=== PATIENT | female | born 1960 | race Caucasian/White ===

== ENCOUNTER → 2017-04-20 | Outpatient (CLI) | payer OTHER ==
--- NOTE | 2017-04-20 09:28 | WOMENS IMAGING REPORT ---
EXAM DESCRIPTION: BILAT SCREENING MAMMO W/CAD COMPLETED DATE/TIME: 04/20/2017 9:07 am REASON FOR STUDY: SCREENING MAMMO Z12.31 ENCNTR SCREEN MAMMOGRAM FOR MALIGNANT NEOPLASM OF YEN COMPARISON: 2015 TECHNIQUE: Standard craniocaudal and mediolateral oblique views of each breast recorded using digita l acquisition. LIMITATIONS: None. FINDINGS: No masses, calcifications or architectural distortion. No areas of suspicion. Read with the assistance of CAD. .[facility] - R2 Cenova Version 1.3 .[facility] - R2 Cenova Version 1.3 .[facility] - R2 Cenova Version 2.4 .[facility] - R2 Cenova Version 2.4 .[facility] - R2 [employer] Version 9.2 IMPRESSION: NORMAL MAMMOGRAM. BIRADS 1. BREAST DENSITY: b. There are scattered areas of fibroglandular density. BIRAD: 1 NEGATIVE RECOMMENDATION: ROUTINE SCREENING COMMENT: The patient has been notified of the results by letter per SA requirements. Additional no tification policies are in place for contacting patient with suspicious or incomplete findings. Quality ID #225: The [employer] recommends an annual screening mammogram for women aged 40 years or over. This facility utilizes a reminder system to ensure that all patients receive reminder letters, and/or direct phone calls for appointments. This includes reminders for routine scr eening mammograms, diagnostic mammograms, or other Breast Imaging Interventions when appropriate. Th is patient will be placed in the appropriate reminder system. The [employer] [place] [employer] (ACR) has developed recommendations for screening MRI of the breast s in certain patient populations, to be used in conjunction with mammography. Breast MRI surveillanc e may be appropriate for women with more than 20% lifetime risk of developing breast cancer as deter mined by genetic testing, significant family history of the disease, or history of mantle radiation f or Hodgkins Disease. ACR Practice Guidelines 2008. TECHNICAL DOCUMENTATION: FINDING NUMBER: (1) ASSESSMENT: (1) JOB ID: [id number] [employer]- All Rights Reserved
== END ==
LOC: WI 08:42
PROVIDERS: ATTEND Family Medicine
DX: Z12.31 Encounter for screening mammogram for malignant neoplasm of breast (principal)
CPT/HCPCS: 77067

== ENCOUNTER → 2017-08-02 | Outpatient (CLI) | payer OTHER ==
--- NOTE | 2017-08-02 11:20 | RADIOLOGY REPORT (SQ) ---
EXAM DESCRIPTION: CTA CHEST COMPLETED DATE/TIME: 08/02/2017 9:43 am REASON FOR STUDY: CHEST PAIN (R07.9) R07.9 CHEST PAIN, UNSPECIFIED I82.4Z2 AC EMBLSM AND THOMBERONICA U NSP DEEP VEINS OF LEFT DIST L COMPARISON: None. TECHNIQUE: CT scan of the chest performed using helical scanning technique with dynamic intravenous contrast injection. Images reviewed with lung, soft tissue and bone windows. Reconstructed coronal and sagittal MPR images reviewed. Additional 3 dimensional post-processing performed to develop Maximal Intensity Projection images (MD P). All images stored on PACS. All CT scanners at this facility use dose modulation, iterative reconstruction, and/or weight based d osing when appropriate to reduce radiation dose to as low as reasonably achievable (ALARA). [facility]: Dose Right [facility]: CareDose [facility]: Dose Right [facility]: Teradose 4D [facility]: [employer] Edutainment CONTRAST TYPE AND DOSE: contrast/concentration: Isovue 370.00 mg/ml; Total Contrast Delivered: 76.0 ml; Total Saline Delivered: 110.0 ml Contrast bolus optimized for the pulmonary arteries. Not diagnostic for the aorta. RENAL FUNCTION: Creatinine 0.9 RADIATION DOSE: CT Rad equipment meets quality standard of care and radiation dose reduction techniq ues were employed. CTDIvol: 11.3 - 15.5 mGy. DLP: 571 mGy-cm. . LIMITATIONS: None. FINDINGS: LUNGS AND PLEURA: No masses, infiltrates, pneumothorax. No pleural effusions, calcificati ons. AORTA AND GREAT VESSELS: No aneurysm. Contrast bolus not optimized for the aorta. HEART: No pericardial effusion. No significant coronary artery calcifications. PULMONARY ARTERIES: No emboli visualized in the main pulmonary arteries or the segmental branches. HILAR AND MEDIASTINAL STRUCTURES: No identified masses or abnormal nodes. HARDWARE: None in the chest. UPPER ABDOMEN: There is diffuse fatty infiltration of the liver. A couple small splenic artery aneur ysms are identified THYROID AND OTHER SOFT TISSUES: No masses. No adenopathy. BONES: No acute or significant finding. 3D MIPS: Confirm above findings. OTHER: No other significant finding. IMPRESSION: No evidence for pulmonary embolic disease. No acute consolidations or pleural effusions are identified. Other findings as noted above COMMENT: Quality ID # [id number]: Final reports with documentation of one or more dose reduction techniques (e.g., Automated exposure control, adjustment of the mA and/or kV according to patient size, use of iterative reconstruction technique) TECHNICAL DOCUMENTATION: JOB ID: [id number] [employer]- All Rights Reserved Reading location - IP/workstation name: [email or web address]
== END ==
LOC: RAD 08:43
PROVIDERS: ATTEND Internal Medicine Cardiovascular Disease
DX: I82.4Z2 Acute embolism and thrombosis of unspecified deep veins of left distal lower extremity (principal); R07.9 Chest pain, unspecified
CPT/HCPCS: 71275; 82565

== ENCOUNTER → 2017-09-28 | Outpatient (CLI) | payer OTHER ==
--- NOTE | 2017-09-28 09:26 | WOMENS IMAGING REPORT ---
EXAM DESCRIPTION: U/S ABDOMEN LIMITED COMPLETED DATE/TIME: 09/28/2017 8:14 am REASON FOR STUDY: CHEST PAIN R07.9 CHEST PAIN, UNSPECIFIED COMPARISON: CT angio chest 08/02/2017 TECHNIQUE: Dynamic and static grayscale images acquired of the right upper quadrant and recorded on PACS. Additional selected color Doppler and spectral images recorded. LIMITATIONS: Study limited due to acoustical interference from large body habitus, and from air in t he bowel. FINDINGS: PANCREAS: Not visualized LIVER: Liver are demonstrated profound change fatty infiltration, with diffuse increased echogenicity , difficult to penetrate with the ultrasound energy LIVER VASCULATURE: Normal directional flow of the main portal vein and hepatic veins. GALLBLADDER: Multiple stones are present. No gallbladder wall thickening or pericholecystic fluid. ULTRASOUND-DETECTED ELLISON'S SIGN: Negative. INTRAHEPATIC DUCTS AND COMMON DUCT: Not well seen INFERIOR VENA CAVA: Not well seen AORTA: Not visualized RIGHT KIDNEY: Normal size. Normal echogenicity. No solid or suspicious masses. No hydronephrosis. No calcifications. PERITONEAL CAVITY AND RIGHT PLEURAL SPACE: No ascites or effusions. OTHER: No other significant finding. IMPRESSION: Profound fatty infiltration of the liver Stones in the gallbladder without gallbladder wall thickening or pericholecystic fluid. TECHNICAL DOCUMENTATION: JOB ID: [id number] [employer] All Rights Reserved Reading location - IP/workstation name: [email or web address]
== END ==
LOC: WI 07:04
PROVIDERS: ATTEND Internal Medicine Cardiovascular Disease
DX: R07.9 Chest pain, unspecified (principal); K76.0 Fatty (change of) liver, not elsewhere classified
CPT/HCPCS: 76705

== ENCOUNTER → 2017-12-13 | Outpatient (CLI) | payer OTHER ==
[2017-12-13 09:58] LABS: HEMATOCRIT 39.6 % (36.0-47.0); HEMOGLOBIN 13.8 g/dL (12.0-15.5); MEAN CORPUSCULAR HEMOGLOBIN 32.6 pg (27.0-33.4); MEAN CORPUSCULAR HGB CONC 34.7 g/dL (32.0-36.0); MEAN CORPUSCULAR VOLUME 94 fl (80-97); PLATELET COUNT 213 10^3/uL (150-450); RED BLOOD COUNT 4.22 10^6/uL (3.72-5.28); RED CELL DISTRIBUTION WIDTH 13.2 % (11.5-14.0); WHITE BLOOD COUNT 8.6 10^3/uL (4.0-10.5)
[2017-12-13 10:31] LABS: ALANINE AMINOTRANSFERASE 41 U/L (9-52); ALBUMIN 4.2 g/dL (3.5-5.0); ALKALINE PHOSPHATASE 51 U/L (38-126); ANION GAP 9 (5-19); ASPARTATE AMINO TRANSFERASE 26 U/L (14-36); BILIRUBIN,DIRECT 0.2 mg/dL (0.0-0.4); BILIRUBIN,TOTAL 0.5 mg/dL (0.2-1.3); BLOOD UREA NITROGEN 17 mg/dL (7-20); CALCIUM 9.9 mg/dL (8.4-10.2); CARBON DIOXIDE 26 mmol/L (22-30); CHLORIDE 108 mmol/L (98-107); CHOLESTEROL 206.54 mg/dL (0-200); GLUCOSE 115 mg/dL (75-110); SODIUM 142.5 mmol/L (137-145); TOTAL PROTEIN 6.8 g/dL (6.3-8.2); TRIGLYCERIDES 222 mg/dL (<150)
[2017-12-13 10:41] LABS: DIRECT LDL 126 mg/dL (<100)
[2017-12-13 10:43] LABS: VLDL CHOLESTEROL 44.4 mg/dL (10-31)
== END ==
LOC: OD 09:04
PROVIDERS: ATTEND Internal Medicine Cardiovascular Disease
DX: I10 Essential (primary) hypertension (principal); E78.2 Mixed hyperlipidemia; R07.9 Chest pain, unspecified; E66.01 Morbid (severe) obesity due to excess calories; Z79.899 Other long term (current) drug therapy
CPT/HCPCS: 36415; 80048; 80061; 80076; 84443; 85027

== ENCOUNTER → 2018-08-21 | Outpatient (CLI) | payer OTHER ==
[2018-08-21 08:12] LABS: ALANINE AMINOTRANSFERASE 38 U/L (9-52); ALBUMIN 4.1 g/dL (3.5-5.0); ALKALINE PHOSPHATASE 53 U/L (38-126); ANION GAP 10 (5-19); ASPARTATE AMINO TRANSFERASE 21 U/L (14-36); BILIRUBIN,DIRECT 0.2 mg/dL (0.0-0.4); BILIRUBIN,TOTAL 0.4 mg/dL (0.2-1.3); BLOOD UREA NITROGEN 17 mg/dL (7-20); CALCIUM 9.2 mg/dL (8.4-10.2); CARBON DIOXIDE 25 mmol/L (22-30); CHLORIDE 110 mmol/L (98-107); CHOLESTEROL 195.88 mg/dL (0-200); GLUCOSE 122 mg/dL (75-110); POTASSIUM 4.4 mmol/L (3.6-5.0); SODIUM 144.6 mmol/L (137-145); TOTAL PROTEIN 6.4 g/dL (6.3-8.2); TRIGLYCERIDES 238 mg/dL (<150)
[2018-08-21 08:23] LABS: DIRECT LDL 119 mg/dL (<100)
[2018-08-21 08:27] LABS: VLDL CHOLESTEROL 47.6 mg/dL (10-31)
== END ==
LOC: LAB 07:21
PROVIDERS: ATTEND Internal Medicine Cardiovascular Disease
DX: E78.2 Mixed hyperlipidemia (principal); I10 Essential (primary) hypertension; R00.0 Tachycardia, unspecified; Z79.899 Other long term (current) drug therapy
CPT/HCPCS: 36415; 80048; 80061; 80076; 83525

== ENCOUNTER → 2018-09-22 | Outpatient (CLI) | payer OTHER ==
[2018-09-22 07:58] LABS: ALANINE AMINOTRANSFERASE 32 U/L (9-52); ALBUMIN 4.3 g/dL (3.5-5.0); ALKALINE PHOSPHATASE 51 U/L (38-126); ANION GAP 7 (5-19); ASPARTATE AMINO TRANSFERASE 25 U/L (14-36); BILIRUBIN,DIRECT 0.2 mg/dL (0.0-0.4); BILIRUBIN,TOTAL 0.6 mg/dL (0.2-1.3); BLOOD UREA NITROGEN 21 mg/dL (7-20); CARBON DIOXIDE 24 mmol/L (22-30); CHLORIDE 111 mmol/L (98-107); GLUCOSE 112 mg/dL (75-110); POTASSIUM 4.8 mmol/L (3.6-5.0); SODIUM 142.1 mmol/L (137-145); TOTAL PROTEIN 6.7 g/dL (6.3-8.2)
== END ==
LOC: LAB 07:22
PROVIDERS: ATTEND Internal Medicine Cardiovascular Disease
DX: E88.81 Metabolic syndrome and other insulin resistance (principal); E66.01 Morbid (severe) obesity due to excess calories; R94.5 Abnormal results of liver function studies
CPT/HCPCS: 36415; 80048; 80076; 83036; 83525

== ENCOUNTER → 2018-12-22 | Outpatient (CLI) | payer OTHER ==
[2018-12-22 08:28] LABS: ALBUMIN 4.6 g/dL (3.5-5.0); ALKALINE PHOSPHATASE 53 U/L (38-126); ANION GAP 11 (5-19); ASPARTATE AMINO TRANSFERASE 22 U/L (14-36); BILIRUBIN,DIRECT 0.2 mg/dL (0.0-0.4); BILIRUBIN,TOTAL 0.6 mg/dL (0.2-1.3); BLOOD UREA NITROGEN 18 mg/dL (7-20); CARBON DIOXIDE 26 mmol/L (22-30); CHLORIDE 106 mmol/L (98-107); GLUCOSE 109 mg/dL (75-110); POTASSIUM 4.3 mmol/L (3.6-5.0); TOTAL PROTEIN 7.3 g/dL (6.3-8.2)
== END ==
LOC: LAB 07:23
PROVIDERS: ATTEND Internal Medicine Cardiovascular Disease
DX: I10 Essential (primary) hypertension (principal); E88.81 Metabolic syndrome and other insulin resistance; R94.5 Abnormal results of liver function studies; Z79.899 Other long term (current) drug therapy
CPT/HCPCS: 36415; 80048; 80076; 83525

== ENCOUNTER → 2019-03-28 | Outpatient (CLI) | payer OTHER ==
[2019-03-28 08:11] LABS: CHOLESTEROL 226.06 mg/dL (0-200); TRIGLYCERIDES 275 mg/dL (<150)
[2019-03-28 08:22] LABS: DIRECT LDL 142 mg/dL (<100)
[2019-03-30 13:00] LABS: ALBUMIN 4.3 g/dL (3.5-5.0); ALKALINE PHOSPHATASE 46 U/L (38-126); ANION GAP 8 (5-19); ASPARTATE AMINO TRANSFERASE 25 U/L (14-36); BILIRUBIN,DIRECT 0.1 mg/dL (0.0-0.4); BILIRUBIN,TOTAL 0.4 mg/dL (0.2-1.3); BLOOD UREA NITROGEN 25 mg/dL (7-20); CALCIUM 11.1 mg/dL (8.4-10.2); CARBON DIOXIDE 27 mmol/L (22-30); CHLORIDE 104 mmol/L (98-107); GLUCOSE 107 mg/dL (75-110); POTASSIUM 4.8 mmol/L (3.6-5.0); TOTAL PROTEIN 6.8 g/dL (6.3-8.2)
== END ==
LOC: LAB 07:20
PROVIDERS: ATTEND Internal Medicine Cardiovascular Disease
DX: I10 Essential (primary) hypertension (principal); R94.5 Abnormal results of liver function studies; R00.0 Tachycardia, unspecified; Z79.899 Other long term (current) drug therapy; E78.2 Mixed hyperlipidemia; E88.81 Metabolic syndrome and other insulin resistance
CPT/HCPCS: 36415; 80048; 80061; 80076; 83525; 84443

== ENCOUNTER → 2019-05-08 | Outpatient (CLI) | payer OTHER ==
[2019-05-08 07:47] LABS: ANION GAP 11 (5-19); BLOOD UREA NITROGEN 21 mg/dL (7-20); CARBON DIOXIDE 21 mmol/L (22-30); CHLORIDE 107 mmol/L (98-107); CHOLESTEROL 238.66 mg/dL (0-200); GLUCOSE 114 mg/dL (75-110); TRIGLYCERIDES 253 mg/dL (<150)
[2019-05-08 07:58] LABS: DIRECT LDL 142 mg/dL (<100)
[2019-05-08 08:08] LABS: POTASSIUM 4.5 mmol/L (3.6-5.0); VLDL CHOLESTEROL 50.6 mg/dL (10-31)
== END ==
LOC: LAB 07:11
PROVIDERS: ATTEND Internal Medicine Cardiovascular Disease
DX: E78.2 Mixed hyperlipidemia (principal); I10 Essential (primary) hypertension; E83.52 Hypercalcemia
CPT/HCPCS: 36415; 80048; 80061

== ENCOUNTER → 2019-06-26 | Outpatient (CLI) | payer OTHER ==
[2019-06-26 08:50] LABS: ALBUMIN 4.5 g/dL (3.5-5.0); ALKALINE PHOSPHATASE 50 U/L (38-126); ASPARTATE AMINO TRANSFERASE 26 U/L (14-36); BILIRUBIN,TOTAL 0.8 mg/dL (0.2-1.3); CHOLESTEROL 128.55 mg/dL (0-200); TOTAL PROTEIN 6.6 g/dL (6.3-8.2); TRIGLYCERIDES 171 mg/dL (<150)
[2019-06-26 09:01] LABS: DIRECT LDL 64 mg/dL (<100)
[2019-06-26 09:08] LABS: VLDL CHOLESTEROL 34.2 mg/dL (10-31)
[2019-06-26 13:51] LABS: ANION GAP 9 (5-19); BLOOD UREA NITROGEN 18 mg/dL (7-20); CALCIUM 9.8 mg/dL (8.4-10.2); CARBON DIOXIDE 25 mmol/L (22-30); CHLORIDE 107 mmol/L (98-107); GLUCOSE 115 mg/dL (75-110); POTASSIUM 5.1 mmol/L (3.6-5.0)
== END ==
LOC: OD 07:40
PROVIDERS: ATTEND Internal Medicine Cardiovascular Disease
DX: I10 Essential (primary) hypertension (principal); E78.2 Mixed hyperlipidemia; R73.03 Prediabetes; Z79.899 Other long term (current) drug therapy; R94.5 Abnormal results of liver function studies
CPT/HCPCS: 36415; 80048; 80061; 80076; 83036; 83525

== ENCOUNTER → 2019-09-18 | Outpatient (CLI) | payer OTHER ==
[2019-09-18 08:36] LABS: ANION GAP 6 (5-19); BLOOD UREA NITROGEN 21 mg/dL (7-20); CALCIUM 10.1 mg/dL (8.4-10.2); CARBON DIOXIDE 27 mmol/L (22-30); CHLORIDE 106 mmol/L (98-107); CHOLESTEROL 142.01 mg/dL (0-200); GLUCOSE 111 mg/dL (75-110); POTASSIUM 4.2 mmol/L (3.6-5.0); TRIGLYCERIDES 160 mg/dL (<150)
[2019-09-18 08:47] LABS: DIRECT LDL 69 mg/dL (<100)
== END ==
LOC: OD 07:13
PROVIDERS: ATTEND Internal Medicine Cardiovascular Disease
DX: E87.5 Hyperkalemia (principal); I10 Essential (primary) hypertension; E88.81 Metabolic syndrome and other insulin resistance; E78.2 Mixed hyperlipidemia; Z79.899 Other long term (current) drug therapy
CPT/HCPCS: 36415; 80048; 80061; 83036; 83525

== ENCOUNTER → 2019-12-18 | Outpatient (CLI) | payer OTHER ==
[2019-12-18 08:30] LABS: HEMATOCRIT 37.5 % (36.0-47.0); HEMOGLOBIN 12.9 g/dL (12.0-15.5); MEAN CORPUSCULAR HGB CONC 34.4 g/dL (32.0-36.0); MEAN CORPUSCULAR VOLUME 90 fl (80-97); PLATELET COUNT 169 10^3/uL (150-450); RED BLOOD COUNT 4.17 10^6/uL (3.72-5.28); RED CELL DISTRIBUTION WIDTH 13.3 % (11.5-14.0); WHITE BLOOD COUNT 6.5 10^3/uL (4.0-10.5)
[2019-12-18 09:10] LABS: ERYTHROCYTE SEDIMENTATION RATE 8 mm/hr (0-30)
[2019-12-18 09:13] LABS: ALBUMIN 4.6 g/dL (3.5-5.0); ALKALINE PHOSPHATASE 52 U/L (38-126); ANION GAP 12 (5-19); ASPARTATE AMINO TRANSFERASE 29 U/L (14-36); BILIRUBIN,DIRECT 0.3 mg/dL (0.0-0.4); BLOOD UREA NITROGEN 20 mg/dL (7-20); CALCIUM 10.4 mg/dL (8.4-10.2); CARBON DIOXIDE 26 mmol/L (22-30); CHLORIDE 105 mmol/L (98-107); CHOLESTEROL 132.27 mg/dL (0-200); GLUCOSE 109 mg/dL (75-110); POTASSIUM 5.3 mmol/L (3.6-5.0); TOTAL PROTEIN 6.8 g/dL (6.3-8.2); TRIGLYCERIDES 118 mg/dL (<150)
[2019-12-18 09:24] LABS: DIRECT LDL 64 mg/dL (<100)
== END ==
LOC: OD 07:08
PROVIDERS: ATTEND Internal Medicine Cardiovascular Disease
DX: I82.4Z2 Acute embolism and thrombosis of unspecified deep veins of left distal lower extremity (principal); R00.0 Tachycardia, unspecified; E78.2 Mixed hyperlipidemia; R73.03 Prediabetes; R94.5 Abnormal results of liver function studies
CPT/HCPCS: 36415; 80048; 80061; 80076; 83036; 83525; 83735; 84443; 85027; 85379; 85652

== ENCOUNTER 2020-02-11 17:38 | Emergency (ER) | payer OTHER ==
[2020-02-11] MEDS ORDERED: ASPIRIN 81 MG TABLET, CHEWABLE PO ONE (18:06)
--- NOTE | 2020-02-11 18:06 | ER Document Report ---
ED Medical Screen (RME) - General Chief Complaint: Chest Pain Stated Complaint: CHEST PAIN Time Seen by Provider: 02/11/20 18:02 Primary Care Provider: JADA JIMENEZ MD [Primary Care Provider] - Follow up as needed Mode of Arrival: Ambulatory Information source: Patient Notes: 59-year-old female presents to ED for complaint of chest pain that started on Tuesday. He states that lasted the whole day Tuesday even taken nitro and Tums. She states when she got up in the morning he walked around a little but it did get better. She states she has had it every day since then. She has called the doctor's office he told her that she needed to come to the ER and get evaluated. We will get a chest pain protocol work-up started. Blood urine chest x-ray she has had a EKG and she will see another provider. I have greeted and performed a rapid initial assessment of this patient. A comprehensive ED assessment and evaluation of the patient, analysis of test results and completion of medical decision making process will be conducted by an additional ED providers. TRAVEL OUTSIDE OF THE [place] IN LAST 30 DAYS: No Physical Exam - Vital signs Vitals: Temp Pulse Resp BP Pulse Ox 98.8 F 89 16 124/66 98 02/11/20 17:49 02/11/20 17:49 02/11/20 17:49 02/11/20 17:49 02/11/20 17:49 Course - Vital Signs Vital signs: Temp Pulse Resp BP Pulse Ox 98.8 F 89 16 124/66 98 02/11/20 17:49 02/11/20 17:49 02/11/20 17:49 02/11/20 17:49 02/11/20 17:49 Doctor's Discharge - Discharge Referrals: JADA JIMENEZ MD [Primary Care Provider] - Follow up as needed
--- NOTE | 2020-02-11 18:47 | RADIOLOGY REPORT (SQ) ---
EXAM DESCRIPTION: CHEST 2 VIEWS IMAGES COMPLETED DATE/TIME: 02/11/2020 6:37 pm REASON FOR STUDY: Chest pain COMPARISON: None. EXAM PARAMETERS: NUMBER OF VIEWS: two views TECHNIQUE: Digital Frontal and Lateral radiographic views of the chest acquired. RADIATION DOSE: NA LIMITATIONS: none FINDINGS: LUNGS AND PLEURA: No opacities, masses or pneumothorax. No pleural effusion. MEDIASTINUM AND HILAR STRUCTURES: No masses or contour abnormalities. HEART AND VASCULAR STRUCTURES: Heart normal size. No evidence for failure. BONES: No acute findings. HARDWARE: None in the chest. OTHER: No other significant finding. IMPRESSION: NO ACUTE RADIOGRAPHIC FINDING IN THE CHEST. TECHNICAL DOCUMENTATION: JOB ID: [id number] 2010 [employer]- All Rights Reserved Reading location - IP/workstation name: [email or web address]
[2020-02-11 19:05] LABS: ABSOLUTE EOSINOPHILS # (AUTO) 0.1 10^3/uL (0.0-0.6); ABSOLUTE LYMPHOCYTES (AUTO) 1.9 10^3/uL (0.5-4.7); ABSOLUTE MONOCYTES (AUTO) 0.5 10^3/uL (0.1-1.4); ABSOLUTE NEUT (AUTO) 1.4 10^3/uL (1.7-8.2); BASOPHILS % (AUTO) 0.3 % (0-2); EOSINOPHILS % (AUTO) 1.7 % (0-6); HEMATOCRIT 36.4 % (36.0-47.0); HEMOGLOBIN 12.2 g/dL (12.0-15.5); LYMPHOCYTES % (AUTO) 48.1 % (13-45); MEAN CORPUSCULAR HEMOGLOBIN 30.3 pg (27.0-33.4); MEAN CORPUSCULAR HGB CONC 33.6 g/dL (32.0-36.0); MEAN CORPUSCULAR VOLUME 90 fl (80-97); MONOCYTES % (AUTO) 13.9 % (3-13); PLATELET COUNT 158 10^3/uL (150-450); RED BLOOD COUNT 4.03 10^6/uL (3.72-5.28); RED CELL DISTRIBUTION WIDTH 13.5 % (11.5-14.0); TOTAL CELLS COUNTED % (AUTO) 100 %; WHITE BLOOD COUNT 3.9 10^3/uL (4.0-10.5)
[2020-02-11 19:17] LABS: APPEARANCE,URINE CLEAR; BILIRUBIN,URINE NEGATIVE (NEGATIVE); COLOR,URINE COLORLESS; GLUCOSE, URINE NEGATIVE (NEGATIVE); KETONES,URINE NEGATIVE (NEGATIVE); LEUKOCYTE ESTERASE,URINE NEGATIVE (NEGATIVE); NITRITE,URINE NEGATIVE (NEGATIVE); PROTEIN,URINE NEGATIVE (NEGATIVE); URINE SPECIFIC GRAVITY 1.003; UROBILINOGEN,URINE NEGATIVE mg/dL (<2.0)
[2020-02-11 19:24] LABS: ALBUMIN 4.4 g/dL (3.5-5.0); ALKALINE PHOSPHATASE 41 U/L (38-126); ANION GAP 7 (5-19); ASPARTATE AMINO TRANSFERASE 33 U/L (14-36); BILIRUBIN,TOTAL 0.7 mg/dL (0.2-1.3); BLOOD UREA NITROGEN 16 mg/dL (7-20); CALCIUM 9.8 mg/dL (8.4-10.2); CARBON DIOXIDE 25 mmol/L (22-30); CHLORIDE 104 mmol/L (98-107); GLUCOSE 91 mg/dL (75-110); POTASSIUM 3.8 mmol/L (3.6-5.0); TOTAL PROTEIN 6.6 g/dL (6.3-8.2)
--- NOTE | 2020-02-11 19:45 | EKG REPORT ---
SEVERITY:- BORDERLINE ECG - SINUS RHYTHM BORDERLINE LEFT AXIS DEVIATION BORDERLINE R WAVE PROGRESSION, ANTERIOR LEADS BORDERLINE T ABNORMALITIES, ANTERIOR LEADS : Confirmed by: Sergey Santoro MD 11-Feb-2020 19:44:51
[2020-02-11] MEDS ORDERED: ASPIRIN 81 MG TABLET, CHEWABLE ONE (20:20)
[2020-02-11 22:32] VITALS: BP 109/62
[2020-02-11] MEDS ORDERED: FAMOTIDINE 20 MG TABLET PO ONE (23:04)
--- NOTE | 2020-02-11 23:20 | ER Document Report ---
ED General - General Chief Complaint: Chest Pain Stated Complaint: CHEST PAIN Time Seen by Provider: 02/11/20 18:02 Primary Care Provider: JADA JIMENEZ MD [Primary Care Provider] - Follow up as needed Mode of Arrival: Ambulatory TRAVEL OUTSIDE OF THE [place] IN LAST 30 DAYS: No - HPI Context: This is a 59-year-old female who presents to the ED complaining of intermittent midsternal pain that has been present for approximately 6 days. Patient states that the pain woke her from sleep when it initially started. Patient states she is tried Tums and has even tried nitroglycerin without relief of symptoms. Patient denies any aggravating or alleviating factors related to the pain. She describes the pain as a 4 out of 5, states that it feels sharp and that it shoots from the front of her chest towards her back. Patient states she only drinks occasionally. Patient denies tobacco smoking or drug use. Patient states she has had episodes of heartburn in the past but this feels different from those episodes. Patient states did a nuclear stress test on her approximately 1 year ago that was unremarkable according to the patient. Patient denies fever, chills, shortness of breath, nausea, vomiting, right upper quadrant pain, diaphoresis, syncope. Patient denies history of DVTs or PEs. Patient denies recent travel. Patient denies association of symptoms with food. Patient denies history of cholecystectomy patient states she has had her appendix taken out. Associated symptoms: Other - See HPI Exacerbated by: Other - See HPI Relieved by: Other - See HPI - Related Data Allergies/Adverse Reactions: No Known Allergies Allergy (Unverified 02/11/20 20:12) Past Medical History - General Information source: Patient - Social History Smoking Status: Never Smoker Frequency of alcohol use: Occasional Drug Abuse: None Family History: Reviewed & Not Pertinent Patient has homicidal ideation: No Review of Systems - Review of Systems Notes: Review of systems as below unless otherwise stated in HPI. CONSTITUTIONAL [No] fever, [No] chills. EYES [No] eye pain. ENT [No] URI symptoms, [No] sore throat, [No] ear pain. CARDIOVASCULAR [Positive] chest pain, [No] palpitations, [No] edema. RESPIRATORY [No] Cough, [No] SOB, [No] wheezing. GASTROINTESTINAL [No] abdominal pain, [No] nausea, [No] Diarrhea, [No] Vomiting, [No] constipation, [No] melena, [No] rectal bleeding. GENITOURINARY [No] dysuria, [No] urinary frequency, [No] hematuria, [No] urinary urgency, [No] vaginal discharge, [No] vaginal bleeding. MUSCULOSKELETAL [No] Back pain. SKIN [No] Rash. NEUROLOGIC [No] Headache, [No] recent seizures, [No] paralysis,[No] parathesias. ENDOCRINE [No] polyuria. HEMO/LYMPATIC [No] easy brusing PSYCHIATRIC [No] depression. Physical Exam - Vital signs Vitals: Temp Pulse Resp BP Pulse Ox 98.8 F 89 16 124/66 98 02/11/20 17:49 02/11/20 17:49 02/11/20 17:49 02/11/20 17:49 02/11/20 17:49 - Notes Notes: CONSTITUTIONAL [Vital signs reviewed, Patient appears comfortable, Alert and oriented X 3, Normal stature.] HEAD [Atraumatic, Normocephalic.] EYES [Eyes are normal to inspection, No discharge from eyes, Extraocular muscles intact, Sclera are normal, Conjunctiva are normal.] ENT [External ears normal to inspection, Nose examination normal, Mouth normal to inspection.] NECK [Normal ROM, No jugular venous distention, No meningeal signs, ] RESPIRATORY CHEST [Chest is nontender, Breath sounds normal, No respiratory distress.] CARDIOVASCULAR [RRR, No murmurs, Normal S1 S2, No rub, No gallop.] ABDOMEN [Abdomen is nontender, No pulsatile masses, No other masses, Bowel sounds normal, No distension, No peritoneal signs, No hernias.] BACK [There is no CVA Tenderness, There is no tenderness to palpation, Normal inspection.] UPPER EXTREMITY [Inspection normal, No cyanosis, No clubbing, No edema, LOWER EXTREMITY [Inspection normal, No cyanosis, No clubbing, No edema, No calf tenderness, NEURO [No focal motor deficits, No focal sensory deficits, Speech normal.] SKIN [Skin is warm, Skin is dry, Skin is normal color.] PSYCHIATRIC [Normal affect. ] Course - Re-evaluation Re-evalutation: 02/11/20 23:22 HEART Score: History intermittent chest pain that is unrelated to activity ECG: Appears unremarkable Age: 59 Risk Factors: Hyperlipidemia, elevated cholesterol Troponin: First troponin negative Total: 2 If HEART score is = 3 AND both tronponin measurments are normal, the 30 day risk of a major adverse cardiac event (all-cause mortality, myocardia infarction or need for coronary revscularization) is < 1% (Sensitivity 100%, NPV 100%). Chest pain in a patient without evidence of cardiac or other serious etiology on workup today. I discussed with patient that, based on their age, risk factors and emergency department testing today, the likelihood that their symptoms are related to a heart attack is very low (estimated risk of heart attack or over the next 30 days of less than 1%). The patient demonstrates decision making capacity and has verbalized an understanding of these risks to me. Based on this, the patient has chosen to follow-up as an outpatient. Usual chest pain return precautions reviewed. The patient states understanding and agreement with this plan. 02/12/20 00:54 Results of ED MSE discussed with patient. All questions were answered prior to discharge. Emergency signs and symptoms, reasons to return to the emergency department discussed with patient. - Vital Signs Vital signs: Temp Pulse Resp BP Pulse Ox 98.4 F 90 13 109/62 99 02/11/20 22:30 02/11/20 22:30 02/12/20 00:04 02/11/20 22:30 02/12/20 00:08 - Laboratory Result Diagrams: 02/11/20 18:24 02/11/20 18:24 Laboratory results interpreted by me: 02/11/20 02/11/20 18:24 18:24 WBC 3.9 L Lymph % (Auto) 48.1 H [place] % (Auto) 13.9 H Absolute Neuts (auto) 1.4 L Seg Neutrophils % 36.0 L Sodium 136.3 L - Diagnostic Test Radiology reviewed: Reports reviewed - EKG Interpretation by Me Additional EKG results interpreted by me: 02/11/20 23:27 EKG obtained on 02/11/2020 at 1746 hrs. was interpreted by this MD. Findings: Normal sinus rhythm, rate 89 borderline left axis deviation is present, [place] interval appears within normal limits, P waves preceding QRS complexes, QRS complex appears narrow, QTC is 419, there are no obvious patterns of ST elev ation, depression or reciprocal changes seen to suggest acute myocardial ischemia or infarction. No prior EKG is available for comparison. Impression: Normal sinus rhythm with borderline left axis deviation and nonspecific ST segments. Discharge - Discharge Clinical Impression: Chest pain Qualifiers: Chest pain type: unspecified Qualified Code(s): R07.9 - Chest pain, unspecified Condition: Stable Disposition: HOME, SELF-CARE Instructions: Chest Pain of Unclear Cause ([facility]) Additional Instructions: Return to the Emergency Department without delay if any worse. HOME CARE INSTRUCTIONS & INFORMATION: Thank you for choosing us for your medical needs. We hope you're satisfied with the care you received. After you leave, you must properly care for your problem and, at the same time, observe its progress. Any condition can change. Some illnesses can change rapidly over hours or days. If your condition worsens, return to the Emergency Department or see your physician promptly. ABOUT YOUR X-RAYS AND EKG'S: If you had an EKG or X-rays taken, they have been read by the Emergency Physician. The X-rays and EKG's will also be read by a Radiologist or Events Traffic Controller within 24 hours. If discrepancies are noted, you will be notified by telephone. Please be certain the ED has a correct telephone number & address where you can be reached. Also, realize that some fractures or abnormalities do not show up on initial X-rays. If your symptoms continue, see your physician. ABOUT YOUR LABORATORY TEST: If you had laboratory tests, the results have been reviewed by the Emergency Physician. Some test results (for example cultures) may not be available for several days. You will be contacted if any test result shows you need additional treatment. Please be certain the ED has a correct telephone number and address where you can be reached. ABOUT YOUR MEDICATIONS: You will receive instructions on how to take your medicine on the prescription label you receive. Additional information may be provided by the Pharmacy. If you have questions afterwards, call the ED for clarification or further instructions. Some prescribed medications may cause drowsiness. Do not perform tasks such as driving a car or operating machinery without consulting your Pharmacist. If you feel you need a refill of pain medication, your condition will need re-evaluation. Please do not call for a refill of any medication. ABOUT YOUR SIGNATURE: Signature of this document acknowledges to followin. Understanding that you received emergency treatment and that you may be released before al medical problems are known or treated. Please be certain the ED has a correct phone number & address where you can be reached. 2. Acknowledgement that you will arrange for follow-up care as recommended. 3. Authorization for the Emergency Physician to provide information to your follow-up Physician in order to maximize your care. AT ANY TIME, IF YOUR SYMPTOMS CHANGE SIGNIFICANTLY OR WORSEN OR YOU DEVELOP NEW SYMPTOMS, RETURN TO THE EMERGENCY DEPARTMENT IMMEDIATELY FOR RE-EVALUATION. OUR GOAL IS TO PROVIDE EXCELLENT MEDICAL CARE! WE HOPE THAT WE HAVE MET YOUR EXPECTATIONS DURING YOUR EMERGENCY DEPARTMENT VISIT AND THAT YOU FEEL YOU HAVE RECEIVED EXCELLENT CARE! Referrals: JADA JIMENEZ MD [Primary Care Provider] - Follow up as needed NEW QUIÑONES MD [ACTIVE STAFF] - Follow up as needed (call Dr. Quiñones's office to schedule a follow-up appointment)
== END 2020-02-12 01:20 | disposition home or self-care (01) ==
LOC: ER 17:38
DX: R07.9 Chest pain, unspecified (principal)
CPT/HCPCS: 36415; 71046; 80053; 81001; 83690; 83735; 84484; 85025; 93005; 93010; 99285

== ENCOUNTER 2020-02-14 00:41 | Observation (INO) | payer OTHER ==
[2020-02-14 01:45] LABS: ABSOLUTE EOSINOPHILS # (AUTO) 0.1 10^3/uL (0.0-0.6); ABSOLUTE LYMPHOCYTES (AUTO) 1.4 10^3/uL (0.5-4.7); ABSOLUTE MONOCYTES (AUTO) 0.4 10^3/uL (0.1-1.4); ABSOLUTE NEUT (AUTO) 3.4 10^3/uL (1.7-8.2); BASOPHILS % (AUTO) 0.2 % (0-2); EOSINOPHILS % (AUTO) 2.4 % (0-6); HEMATOCRIT 36.5 % (36.0-47.0); HEMOGLOBIN 12.5 g/dL (12.0-15.5); LYMPHOCYTES % (AUTO) 26.9 % (13-45); MEAN CORPUSCULAR HEMOGLOBIN 30.5 pg (27.0-33.4); MEAN CORPUSCULAR HGB CONC 34.3 g/dL (32.0-36.0); MEAN CORPUSCULAR VOLUME 89 fl (80-97); MONOCYTES % (AUTO) 7.1 % (3-13); PLATELET COUNT 157 10^3/uL (150-450); RED CELL DISTRIBUTION WIDTH 13.2 % (11.5-14.0); SEGMENTED NEUTROPHILS % (AUTO) 63.4 % (42-78); TOTAL CELLS COUNTED % (AUTO) 100 %; WHITE BLOOD COUNT 5.3 10^3/uL (4.0-10.5)
[2020-02-14 01:59] LABS: ALBUMIN 4.4 g/dL (3.5-5.0); ALKALINE PHOSPHATASE 46 U/L (38-126); ANION GAP 7 (5-19); ASPARTATE AMINO TRANSFERASE 34 U/L (14-36); BILIRUBIN,DIRECT 0.1 mg/dL (0.0-0.4); BILIRUBIN,TOTAL 0.9 mg/dL (0.2-1.3); BLOOD UREA NITROGEN 19 mg/dL (7-20); CALCIUM 10.4 mg/dL (8.4-10.2); CARBON DIOXIDE 26 mmol/L (22-30); CHLORIDE 107 mmol/L (98-107); CREATINE KINASE 222 U/L (30-135); GLUCOSE 146 mg/dL (75-110); POTASSIUM 4.4 mmol/L (3.6-5.0); TOTAL PROTEIN 6.6 g/dL (6.3-8.2)
[2020-02-14 02:11] LABS: TROPONIN I < 0.012 ng/mL
--- NOTE | 2020-02-14 03:10 | ER Document Report ---
ED General - General Chief Complaint: Chest Pain Stated Complaint: CHEST PAIN Time Seen by Provider: 02/14/20 03:08 Primary Care Provider: JADA JIMENEZ MD [Primary Care Provider] - Follow up as needed TRAVEL OUTSIDE OF THE [place] IN LAST 30 DAYS: No - HPI Notes: 59-year-old female presents with chest pain. Patient states that she developed pain in the lower central portion of her chest last Sunday 02/04, which is over 1 week ago. She states that she felt at first it was heartburn, however tried multiple different medications without relief. She reports that pain has been c onstant since its onset, it will subside at times, however frequently worsens. It is described as stabbing and radiating into her back. She has some nausea, no vomiting or diarrhea. She has not noticed change in pain in relation to eating because she has not really had much of an appetite recently. She states that tonight the pain became "so bad". She is seen in the emergency department on Monday 03/12, she states she was diagnosed with noncardiac chest pain. She took Valium, Robaxin and Aleve at 2130 which did not change the pain. Pain does not change with exertion. She has no shortness of breath and denies previous cardiac history. She still has a gallbladder. She also mentions that her sternum has seemed swollen and is very painful to touch. - Related Data Allergies/Adverse Reactions: No Known Allergies Allergy (Unverified 02/11/20 20:12) Home Medications: chol med, bp med Past Medical History - General Information source: Patient - Social History Smoking Status: Never Smoker Family History: Reviewed & Not Pertinent Review of Systems - Review of Systems Constitutional: denies: Fever EENT: No symptoms reported Cardiovascular: Chest pain Respiratory: denies: Cough, Short of breath Gastrointestinal: Nausea. denies: Diarrhea, Vomiting Genitourinary: No symptoms reported Female Genitourinary: No symptoms reported Musculoskeletal: No symptoms reported Skin: No symptoms reported Hematologic/Lymphatic: No symptoms reported Neurological/Psychological: No symptoms reported Physical Exam - Vital signs Vitals: Temp Pulse Resp BP Pulse Ox 97.9 F 98 24 H 123/77 99 02/14/20 00:55 02/14/20 00:55 02/14/20 00:55 02/14/20 00:55 02/14/20 00:55 - General General appearance: Appears well, Alert - HEENT Head: Normocephalic, Atraumatic Eyes: No: Scleral icterus Extraocular movements intact: Yes Pupils: PERRL - Respiratory Chest status: Tender - Lower third parasternal Breath sounds: Normal - Cardiovascular Rhythm: Regular Heart sounds: Normal auscultation - Abdominal Inspection: Obese Tenderness: Tender - Right upper quadrant. No: Guarding, Rebound - Extremities General upper extremity: Normal ROM General lower extremity: Normal ROM - Neurological Neuro grossly intact: Yes Cognition: Normal Orientation: AAOx4 - Psychological Associated symptoms: Normal affect - Skin Skin Temperature: Warm Skin Color: negative: Jaundiced Course - Re-evaluation Re-evalutation: 59-year-old female here with reported chest pain, though motions mainly to the inferior sternum/epigastric area. Has been intermittently present for greater than 1 week however acutely worsening tonight. On exam she is afebrile and hemodynamically stable. She does have some pretty exquisite tenderness to her parasternal area, have ordered a lidocaine patch to help with symptoms. However found right upper quadrant tenderness on exam as well, abdomen is overall nonperitoneal. Given her pain pattern, suspicious that this could actually be biliary in origin, have ordered a right upper quadrant sound to assess for acute cholecystitis or symptomatic cholelithiasis. Also will check labs to assess for pancreatitis. Possible it is reflux in origin as well. Given her description of pain and physical exam, I do not think that it is cardiac at this time. I did review her ED visit from this week, her EKG was nonischemic and troponins were negative x2. 02/14/20 05:05 No leukocytosis or left shift. No acute anemia. Electrolytes within normal limits. Creatinine within normal limits. T bili, LFTs and lipase within normal limits. Troponin negative. 02/14/20 05:06 Chest x-ray without acute finding 02/14/20 05:41 Ultrasound shows large stone at neck with mildly thickened wall of 4.5mm and 4.8 mm on another view. Reassessed patient, she reports that her pain has improved. Will touch base with surgery 02/14/20 05:52 Troponin negative x2. Discussed with Dr. Friedman, will admit patient for cholecystectomy. Rapid Covid ordered. - Vital Signs Vital signs: Temp Pulse Resp BP Pulse Ox 97.9 F 98 24 H 123/77 99 02/14/20 00:55 02/14/20 00:55 02/14/20 00:55 02/14/20 00:55 02/14/20 00:55 - Laboratory Result Diagrams: 02/14/20 01:31 02/14/20 01:31 Laboratory results interpreted by me: 02/14/20 02/14/20 01:31 01:31 Glucose 146 H Calcium 10.4 H Creatine Kinase 222 H CK-MB (CK-2) 5.50 H - Diagnostic Test Radiology reviewed: Image reviewed, Reports reviewed - EKG Interpretation by Me Additional EKG results interpreted by me: EKG is interpreted by me. Sinus arrhythmia, rate 86. Narrow QRS, QTC within normal limits. No ST segment elevation or depression. Discharge - Discharge Clinical Impression: Acute cholecystitis Disposition: ADMITTED INPATIENT Admitting Provider: Surgicalist Unit Admitted: Surgical Floor Referrals: JADA JIMENEZ MD [Primary Care Provider] - Follow up as needed
[2020-02-14] MEDS ORDERED: ASPIRIN 81 MG TABLET, CHEWABLE PO ONE (03:14)
[2020-02-14] MEDS ORDERED: KETOROLAC TROMETHAMINE INJ/PF 30 MG/1 ML SDV IV ONE (03:26)
[2020-02-14] MEDS ORDERED: LIDOCAINE 5% (700 MG) TRANSDERMAL ADH..PATCH TP ONE (03:26)
[2020-02-14] MEDS ORDERED: FAMOTIDINE INJ/PF 20 MG/2 ML SDV IV ONE (03:27)
--- NOTE | 2020-02-14 04:39 | RADIOLOGY REPORT (SQ) ---
CLINICAL HISTORY: chest pain COMPARISON: None. 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 Lungs are clear without consolidation, atelectasis, mass or edema. There is no pleural effusion. There is no pneumothorax. There are no acute osseous findings. IMPRESSION: Clear lungs.
--- NOTE | 2020-02-14 05:32 | RADIOLOGY REPORT (SQ) ---
CLINICAL HISTORY: epigas/RUQ pain, eval acute calin or CBD dilation COMPARISON: None. TECHNIQUE: US ABDOMEN LIMITED 02/14/2020 3:27 AM ENVIRONMENTAL HEALTH SANITARIAN FINDINGS: Liver is fatty in echotexture. Portal vein is patent. Gallbladder contains several gallstones with mild wall thickening at 4.5 mm. There is a reported negative sonographic Duenas's sign. Right kidney measures 10.9 cm without hydronephrosis. The bladder measures 8 mm. IMPRESSION: Cholelithiasis with mild gallbladder wall thickening.
[2020-02-14] MEDS ORDERED: RINGERS SOLUTION,LACTATED 1,000 ML IV ONE (06:00)
[2020-02-14] MEDS ORDERED: ONDANSETRON HCL INJ/PF 4 MG/2 ML SDV IV PRN (06:53)
[2020-02-14] MEDS ORDERED: DEXTROSE 40% GEL 15 GM TUBE PO PRN ×2 (06:53)
[2020-02-14] MEDS ORDERED: GLUCAGON,HUMAN RECOMB 1 MG INJ SUBCUT PRN (06:53)
[2020-02-14] MEDS ORDERED: DEXTROSE 50%-WATER 25 GM/50 ML DISP.SYRIN IV PRN ×2 (06:53)
[2020-02-14] MEDS: MORPHINE SULFATE 10 MG/ML INJ IV PRN ×3 (09:04→20:11)
--- NOTE | 2020-02-14 10:15 | PDOC H&P ---
History of Present Illness Admission Date/PCP: 02/14/20 05:56 JADA JIMENEZ MD Patient complains of: Epigastric abdominal pain History of Present Illness: NORI MILNER is a 59 year old female with a 3 to 4-day history of epigastric abdominal pain. It waxes and wanes, but it never resolves. The patient denies any overt nausea and vomiting. It is worse with the ingestion of meals. Pain medication makes it better. The patient denies any chest pain, shortness of breath, fevers, chills, cough, dizziness, orthostasis, headache. The patient was tested for COVID-19, and found to be positive. Past Medical History Cardiac Medical History: Reports: Hypertension Endocrine Medical History: Reports: Other - "pre-diabetes" Psychiatric Medical History: Denies: Depression Past Surgical History Past Surgical History: Reports: Appendectomy, Section, Hysterectomy Social History Smoking Status: Never Smoker Hx Recreational Drug Use: No Hx Prescription Drug Abuse: No Family History Family History: Reviewed & Not Pertinent Parental Family History Reviewed: Yes Children Family History Reviewed: Yes Sibling(s) Family History Reviewed.: Yes Medication/Allergy Allergies/Adverse Reactions: No Known Allergies Allergy (Unverified 02/11/20 20:12) Review of Systems Constitutional: ABSENT: anorexia, chills, fatigue Cardiovascular: ABSENT: chest pain Respiratory: ABSENT: cough Gastrointestinal: PRESENT: abdominal pain. ABSENT: bloating Genitourinary: ABSENT: dysuria Integumentary: ABSENT: pruritus, rash Neurological: ABSENT: confusion, convulsions, dizziness Psychiatric: ABSENT: anxiety, depression Endocrine: ABSENT: cold intolerance, heat intolerance Hematologic/Lymphatic: ABSENT: easy bleeding, easy bruising Physical Exam Vital Signs: Temp Pulse Resp BP Pulse Ox 97.6 F 98 14 97/60 L 100 02/14/20 06:19 02/14/20 00:55 02/14/20 07:00 02/14/20 06:19 02/14/20 07:00 Intake & Output 02/13/20 02/14/20 02/15/20 06:59 06:59 06:59 Intake Total 200 Balance 200 Weight 87.2 kg General appearance: PRESENT: no acute distress, cooperative Head exam: PRESENT: atraumatic, normocephalic Eye exam: PRESENT: EOMI, PERRLA. ABSENT: scleral icterus Mouth exam: PRESENT: moist, neck supple Neck exam: ABSENT: meningismus, tenderness, thyromegaly, tracheal deviation Respiratory exam: PRESENT: unlabored. ABSENT: tachypnea, wheezes Cardiovascular exam: ABSENT: tachycardia GI/Abdominal exam: PRESENT: soft, tenderness. ABSENT: distended, firm, guarding - mild epigastric/ RUQ tenderness Rectal exam: PRESENT: deferred Extremities exam: ABSENT: clubbing Musculoskeletal exam: ABSENT: deformity Neurological exam: PRESENT: alert, awake, oriented to person, oriented to place, oriented to time, oriented to situation Psychiatric exam: ABSENT: agitated, anxious, depressed Focused psych exam: ABSENT: delusional Skin exam: ABSENT: cyanosis, erythema, jaundice Results Laboratory Results: 02/14/20 01:31 02/14/20 01:31 02/14/20 02/14/20 02/14/20 01:31 01:31 01:31 WBC 5.3 RBC 4.10 Hgb 12.5 Hct 36.5 MCV 89 MCH 30.5 MCHC 34.3 RDW 13.2 Plt Count 157 Seg Neutrophils % 63.4 Sodium 139.9 Potassium 4.4 Chloride 107 Carbon Dioxide 26 Anion Gap 7 BUN 19 Creatinine 0.84 Est GFR ( Amer) > 60 Glucose 146 H Calcium 10.4 H Total Bilirubin 0.9 AST 34 Alkaline Phosphatase 46 Total Protein 6.6 Albumin 4.4 Lipase 145.3 02/14/20 02/14/20 02/14/20 01:31 01:31 04:35 Creatine Kinase 222 H CK-MB (CK-2) 5.50 H Troponin I < 0.012 < 0.012 Impressions: Chest X-Ray 02/14/20 03:13 IMPRESSION: Clear lungs. Abdomen Ultrasound 02/14/20 03:27 IMPRESSION: Cholelithiasis with mild gallbladder wall thickening. Assessment & Plan - Diagnosis (1) Acute cholecystitis Is this a current diagnosis for this admission?: Yes - Time Anticipated Discharge Disposition: Home, Self Care Anticipated Discharge Timeframe: within 72 hours - Plan Summary Plan Summary: 59-year-old female with gallbladder wall thickening found on ultrasound. She has epigastric abdominal pain that is mild to moderate. She has no evidence of sepsis, biliary obstruction, or intra-abdominal disaster. In light of her COVID-19 positivity and her minimal symptoms, I have recommended treatment with antibiotics and watchful waiting. If she improves with antibiotics, her surgery should be delayed for 2 weeks (in an effort to let her COVID-19 infection run its course). If she worsens, surgery can be performed with appropriate precautions. Start Zosyn. Continue with pain and nausea medications. Okay for clear liquids.
[2020-02-14] MEDS: SUCRALFATE 1 GM TABLET PO SCH ×3 (11:31→21:24)
[2020-02-14] MEDS: FAMOTIDINE INJ/PF 20 MG/2 ML SDV IV SCH ×2 (11:31→21:24)
[2020-02-14] MEDS: PIPERACILLIN SODIUM/TAZOBACTAM 3.375 GM in NORMAL SALINE 100 ML IV SCH ×2 (13:21→17:00)
[2020-02-14] MEDS: NORMAL SALINE 1000 ML 1,000 ML IV PRN ×2 (13:23→21:30)
--- NOTE | 2020-02-14 17:44 | EKG REPORT ---
SEVERITY:- OTHERWISE NORMAL ECG - SINUS ARRHYTHMIA, RATE [id number] : Confirmed by: Sergey Santoro MD 14-Feb-2020 17:43:50
[2020-02-15] MEDS: PIPERACILLIN SODIUM/TAZOBACTAM 3.375 GM in NORMAL SALINE 100 ML IV SCH ×5 (00:30→23:12)
[2020-02-15] MEDS: MORPHINE SULFATE 10 MG/ML INJ IV PRN ×5 (05:51→22:51)
[2020-02-15] MEDS: NORMAL SALINE 1000 ML 1,000 ML IV PRN ×4 (05:52→23:12)
[2020-02-15 06:11] LABS: ABSOLUTE LYMPHOCYTES (AUTO) 1.4 10^3/uL (0.5-4.7); ABSOLUTE MONOCYTES (AUTO) 0.4 10^3/uL (0.1-1.4); ABSOLUTE NEUT (AUTO) 1.7 10^3/uL (1.7-8.2); BASOPHILS % (AUTO) 0.1 % (0-2); EOSINOPHILS % (AUTO) 0.9 % (0-6); HEMATOCRIT 34.1 % (36.0-47.0); HEMOGLOBIN 11.8 g/dL (12.0-15.5); LYMPHOCYTES % (AUTO) 38.3 % (13-45); MEAN CORPUSCULAR HEMOGLOBIN 30.7 pg (27.0-33.4); MEAN CORPUSCULAR HGB CONC 34.4 g/dL (32.0-36.0); MEAN CORPUSCULAR VOLUME 89 fl (80-97); MONOCYTES % (AUTO) 12.4 % (3-13); PLATELET COUNT 111 10^3/uL (150-450); RED BLOOD COUNT 3.83 10^6/uL (3.72-5.28); RED CELL DISTRIBUTION WIDTH 13.1 % (11.5-14.0); SEGMENTED NEUTROPHILS % (AUTO) 48.3 % (42-78); TOTAL CELLS COUNTED % (AUTO) 100 %; WHITE BLOOD COUNT 3.6 10^3/uL (4.0-10.5)
[2020-02-15 06:34] LABS: ALBUMIN 3.4 g/dL (3.5-5.0); ALKALINE PHOSPHATASE 39 U/L (38-126); ANION GAP 7 (5-19); ASPARTATE AMINO TRANSFERASE 33 U/L (14-36); BILIRUBIN,DIRECT 0.1 mg/dL (0.0-0.4); BILIRUBIN,TOTAL 0.9 mg/dL (0.2-1.3); BLOOD UREA NITROGEN 13 mg/dL (7-20); CALCIUM 8.4 mg/dL (8.4-10.2); CARBON DIOXIDE 24 mmol/L (22-30); CHLORIDE 108 mmol/L (98-107); GLUCOSE 92 mg/dL (75-110); POTASSIUM 3.9 mmol/L (3.6-5.0); TOTAL PROTEIN 5.4 g/dL (6.3-8.2)
[2020-02-15] MEDS: SUCRALFATE 1 GM TABLET PO SCH ×4 (07:44→21:49)
--- NOTE | 2020-02-15 09:16 | PDOC PROGRESS REPORT ---
Subjective Date:: 02/15/20 Subjective:: Epigastric pains Reason For Visit: ACUTE CHOLEYCYSTITIS Physical Exam Vital Signs: Temp Pulse Resp BP Pulse Ox 98.5 F 83 18 110/58 L 95 02/15/20 07:38 02/15/20 07:38 02/15/20 07:38 02/15/20 07:38 02/15/20 07:38 Intake & Output 02/14/20 02/15/20 02/16/20 06:59 06:59 06:59 Intake Total 2799 Output Total 200 Balance 2599 Weight 87.2 kg 91.2 kg Exam: Abdomen is soft with mild tenderness at the epigastric area. Results Laboratory Results: 02/15/20 05:25 02/15/20 05:25 02/15/20 02/15/20 05:25 05:25 WBC 3.6 L RBC 3.83 Hgb 11.8 L Hct 34.1 L MCV 89 MCH 30.7 MCHC 34.4 RDW 13.1 Plt Count 111 L Seg Neutrophils % 48.3 Sodium 138.6 Potassium 3.9 Chloride 108 H Carbon Dioxide 24 Anion Gap 7 BUN 13 Creatinine 1.02 Est GFR ( Amer) > 60 Glucose 92 Calcium 8.4 Total Bilirubin 0.9 AST 33 Alkaline Phosphatase 39 Total Protein 5.4 L Albumin 3.4 L 02/14/20 02/14/20 02/14/20 01:31 01:31 04:35 Creatine Kinase 222 H CK-MB (CK-2) 5.50 H Troponin I < 0.012 < 0.012 Impressions: Chest X-Ray 02/14/20 03:13 IMPRESSION: Clear lungs. Abdomen Ultrasound 02/14/20 03:27 IMPRESSION: Cholelithiasis with mild gallbladder wall thickening. Assessment & Plan - Diagnosis (1) Cholelithiasis Is this a current diagnosis for this admission?: Yes (2) Acute cholecystitis Is this a current diagnosis for this admission?: Yes - Time Anticipated Discharge Disposition: Home, Self Care Anticipated Discharge Timeframe: within 72 hours Critical Time spent with patient: 15-24 minutes - Inpatient Certification Medical Necessity: Need for IV Antibiotics - Plan Summary Plan Summary: 59-year-old female admitted for right upper quadrant and epigastric pains and ultrasound showed cholelithiasis with a slightly thickened gallbladder wall. White count remained normal. Her LFT's are normal yesterday and today. She is positive for Covid testing. Her abdomen remains soft with mild tenderness at the epigastric area. The plan is to continue with the antibiotic therapy. If her symptoms worsen or white count becomes elevated then she will need emergency gallbladder surgery. Otherwise plan on discharging in the next 48 to 72 hours then return in 2 weeks when her Covid virus course has panned out then to bring her to the OR at that time for lap calin.
[2020-02-15] MEDS: FAMOTIDINE INJ/PF 20 MG/2 ML SDV IV SCH ×2 (10:20→21:48)
[2020-02-16] MEDS: MORPHINE SULFATE 10 MG/ML INJ IV PRN ×2 (01:58→20:23)
[2020-02-16] MEDS: PIPERACILLIN SODIUM/TAZOBACTAM 3.375 GM in NORMAL SALINE 100 ML IV SCH ×3 (05:54→17:25)
[2020-02-16] MEDS: KETOROLAC TROMETHAMINE INJ/PF 30 MG/1 ML SDV IV PRN ×2 (05:54→13:00)
[2020-02-16] MEDS: NORMAL SALINE 1000 ML 1,000 ML IV PRN ×2 (06:00→15:58)
[2020-02-16] MEDS: SUCRALFATE 1 GM TABLET PO SCH ×4 (07:41→21:58)
[2020-02-16] MEDS: FAMOTIDINE INJ/PF 20 MG/2 ML SDV IV SCH ×2 (10:49→21:59)
--- NOTE | 2020-02-16 19:01 | RADIOLOGY REPORT (SQ) ---
EXAM DESCRIPTION: NM HIDA SCAN IMAGES COMPLETED DATE/TIME: 02/16/2020 1:03 pm REASON FOR STUDY: Rule out acute cholecystitis COMPARISON: None. RADIONUCLIDE AND DOSE: DOSAGE RADIONUCLIDE: 5.37 millicuries Tc99m Mebrofenin. DOSAGE MORPHINE: Not required. The route of agent administration: Intravenous TECHNIQUE: Serial imaging right upper quadrant up to 60 minutes following injection of radionuclide. Patient imaged AP and Right Lateral. LIMITATIONS: None. FINDINGS: LIVER: Normal visualization without areas of photopenia. INTRA-HEPATIC BILE DUCTS: Temporal visualization normal. No dilatation. COMMON BILE DUCT: Normal without dilatation or delayed visualization. GALLBLADDER: Not visualized. OTHER: No other significant finding. IMPRESSION: Positive HIDA. TECHNICAL DOCUMENTATION: JOB ID: [id number] 2010 [employer]- All Rights Reserved Reading location - IP/workstation name: [email or web address]
[2020-02-16] MEDS: ACETAMINOPHEN 325 MG TABLET PO PRN (22:01)
--- NOTE | 2020-02-16 23:23 | PDOC PROGRESS REPORT ---
Subjective Date:: 02/16/20 Subjective:: still with some ruq pain level 3/10 reported by patient Reason For Visit: ACUTE CHOLEYCYSTITIS Physical Exam Vital Signs: Temp Pulse Resp BP Pulse Ox 99.6 F 78 16 103/64 100 02/16/20 20:44 02/16/20 20:09 02/16/20 20:09 02/16/20 20:09 02/16/20 20:09 Intake & Output 02/15/20 02/16/20 02/17/20 06:59 06:59 06:59 Intake Total 2799 2678 1000 Output Total 200 1000 Balance 2599 1678 1000 Weight 91.2 kg 92.9 kg General appearance: PRESENT: no acute distress Head exam: PRESENT: normocephalic Eye exam: PRESENT: EOMI Ear exam: PRESENT: normal external ear exam Mouth exam: PRESENT: moist Teeth exam: PRESENT: poor dentation Neck exam: PRESENT: full ROM Respiratory exam: PRESENT: clear to auscultation billy Cardiovascular exam: PRESENT: RRR Pulses: PRESENT: normal radial pulses, normal femoral pulses Breast: PRESENT: Normal GI/Abdominal exam: PRESENT: soft - min ruq pain to deep palpation Rectal exam: PRESENT: deferred Extremities exam: PRESENT: full ROM Musculoskeletal exam: PRESENT: full ROM Neurological exam: PRESENT: alert, awake, oriented to person, oriented to place Psychiatric exam: PRESENT: appropriate affect Skin exam: PRESENT: dry Results Laboratory Results: 02/15/20 05:25 02/15/20 05:25 02/14/20 02/14/20 02/14/20 01:31 01:31 04:35 Creatine Kinase 222 H CK-MB (CK-2) 5.50 H Troponin I < 0.012 < 0.012 Impressions: Chest X-Ray 02/14/20 03:13 IMPRESSION: Clear lungs. Abdomen Ultrasound 02/14/20 03:27 IMPRESSION: Cholelithiasis with mild gallbladder wall thickening. Hepatobiliary Scan Nuclear Medicine 02/16/20 12:00 IMPRESSION: Positive HIDA. Assessment & Plan - Time Anticipated Discharge Disposition: Home, Self Care Anticipated Discharge Timeframe: unk - Plan Summary Plan Summary: hida scan positibe for no visualization of gallbladder pt is coivid + but assymptomatic currently her ruq pain is present and she wishes to proceed iwth surgery spent about 1 hr discussing the covid protcol and situation with pt she seems to understand that unless her surgery is emergent, operating with on a covid + pt for non emergent surgery is currently restricted plan wll cont iuv abx start diet if she tolerats a soft diet, will dc home in am on oral abx and schedule her in 10 days after a neg covid test.
[2020-02-17] MEDS: PIPERACILLIN SODIUM/TAZOBACTAM 3.375 GM in NORMAL SALINE 100 ML IV SCH ×3 (00:24→11:30)
[2020-02-17] MEDS: MORPHINE SULFATE 10 MG/ML INJ IV PRN (04:15)
[2020-02-17] MEDS: ACETAMINOPHEN 325 MG TABLET PO PRN (04:17)
[2020-02-17] MEDS ORDERED: OXYCODONE-ACETAMINOPHEN 5-325 MG TABLET PO PRN (05:03)
[2020-02-17] MEDS ORDERED: OXYCODONE HCL IR 5 MG TABLET PO PRN (05:04)
[2020-02-17 07:02] LABS: ABSOLUTE EOSINOPHILS # (AUTO) 0.1 10^3/uL (0.0-0.6); ABSOLUTE LYMPHOCYTES (AUTO) 1.5 10^3/uL (0.5-4.7); ABSOLUTE MONOCYTES (AUTO) 0.3 10^3/uL (0.1-1.4); BASOPHILS % (AUTO) 0.2 % (0-2); EOSINOPHILS % (AUTO) 3.7 % (0-6); HEMATOCRIT 28.7 % (36.0-47.0); HEMOGLOBIN 9.8 g/dL (12.0-15.5); LYMPHOCYTES % (AUTO) 37.4 % (13-45); MEAN CORPUSCULAR HEMOGLOBIN 30.5 pg (27.0-33.4); MEAN CORPUSCULAR HGB CONC 34.2 g/dL (32.0-36.0); MEAN CORPUSCULAR VOLUME 89 fl (80-97); MONOCYTES % (AUTO) 8.7 % (3-13); RED BLOOD COUNT 3.23 10^6/uL (3.72-5.28); TOTAL CELLS COUNTED % (AUTO) 100 %
[2020-02-17 07:22] LABS: PLATELET COUNT 88 10^3/uL (150-450)
[2020-02-17 07:27] LABS: ALBUMIN 2.7 g/dL (3.5-5.0); ALKALINE PHOSPHATASE 35 U/L (38-126); ANION GAP 5 (5-19); ASPARTATE AMINO TRANSFERASE 22 U/L (14-36); BILIRUBIN,TOTAL 0.8 mg/dL (0.2-1.3); BLOOD UREA NITROGEN 9 mg/dL (7-20); CARBON DIOXIDE 23 mmol/L (22-30); CHLORIDE 112 mmol/L (98-107); GLUCOSE 81 mg/dL (75-110); POTASSIUM 3.5 mmol/L (3.6-5.0); TOTAL PROTEIN 4.7 g/dL (6.3-8.2)
[2020-02-17 07:54] VITALS: BP 114/64
[2020-02-17] MEDS: NORMAL SALINE 1000 ML 1,000 ML IV PRN (07:59)
[2020-02-17] MEDS: SUCRALFATE 1 GM TABLET PO SCH ×2 (08:00→10:05)
[2020-02-17] MEDS: FAMOTIDINE INJ/PF 20 MG/2 ML SDV IV SCH (10:05)
--- NOTE | 2020-02-17 10:25 | PDOC DISCHARGE SUMMARY ---
General - Admit/Disc Date/PCP Admission Date/Primary Care Provider: 02/14/20 05:56 JADA JIMENEZ MD Discharge Date: 02/17/20 - Discharge Diagnosis Final Diagnosis: biliary cholic - Assessment Summary: This is a 59-year-old female who was admitted with right upper quadrant epigastric pain from the emergency room approximately 2 days prior to discharge. She underwent an ultrasound which showed cholelithiasis and a mildly thickened gallbladder wall and she had mild right upper quadrant and epigastric tenderness. She also tested positive for Covid in the emergency room. She was admitted to the hospital observed for 48 hours. During which time she had a HIDA scan which showed nonvisualization of the gallbladder however her liver function studies and her white blood count remained within normal limits. Because of her Covid positive status and her only minimal symptoms it was elected not to perform surgery at this point but wait out the quarantine. And perform the cholecystectomy as an outpatient. She was given a regular diet which she tolerated well with only minimal amounts of right upper quadrant and epigastric pain. At this point we are going to discharge her home on a 10-day course of oral antibiotics Bactrim and she will follow-up next week in my clinic for scheduling for her laparoscopic cholecystectomy. She is encouraged to return to the emergency room should her symptoms get worse or she developed fever or chills. She also be given a prescription for pain pills. - Additional Information Resuscitation Status: Full Code Discharge Diet: As Tolerated, Other (Comments) - Low-fat diet Discharge Activity: Activity As Tolerated, No Lifting Over 10 Pounds Referrals: JADA JIMENEZ MD [Primary Care Provider] - Follow up as needed Prescriptions: Sulfamethoxazole/Trimethoprim [Bactrim Ds Tablet] 1 each PO BID #20 tablet Docusate Sodium [Colace 100 mg Capsule] 100 mg PO BID #60 capsule Hydrocodone/Acetaminophen [Gaffney 10-325 mg Tablet] 1 tab PO Q6HP PRN #15 tablet PRN Reason: Home Medications: Atorvastatin Calcium [Lipitor 40 mg Tablet] 40 mg PO DAILY 02/14/20 Carvedilol 25 mg PO BID 02/14/20 Dextroamphetamine/Amphetamine [Adderall Xr 30 mg Capsule] 30 mg PO DAILY 02/14/20 Lifitegrast [Xiidra] 1 drop OU BID 02/14/20 Lisinopril [Prinivil 10 mg Tablet] 10 mg PO DAILY 02/14/20 Magnesium Oxide [Magnesium] 400 mg PO DAILY 02/14/20 Metformin HCl 1,000 mg PO BID 02/14/20 Nitroglycerin [Nitrostat 0.4 mg (1/150 Gr) Tabs 25/Bottle] 1 tab SL Q5MP PRN 02/14/20 Topiramate [Trokendi Xr] 50 mg PO DAILY 02/14/20 Docusate Sodium [Colace 100 mg Capsule] 100 mg PO BID #60 capsule 02/17/20 Hydrocodone/Acetaminophen [Gaffney 10-325 mg Tablet] 1 tab PO Q6HP PRN #15 tablet 02/17/20 Sulfamethoxazole/Trimethoprim [Bactrim Ds Tablet] 1 each PO BID #20 tablet 02/17/20 History of Present Illiness History of Present Illness: NORI MILNER is a 59 year old female Physical Exam Vital Signs: Temp Pulse Resp BP Pulse Ox 98.3 F 73 18 114/64 99 02/17/20 08:48 02/17/20 07:50 02/17/20 07:50 02/17/20 07:50 02/17/20 07:50 Intake & Output 02/16/20 02/17/20 02/18/20 06:59 06:59 06:59 Intake Total 2678 2260 Output Total 1000 1000 Balance 1678 1260 Weight 92.9 kg 92.9 kg Results Laboratory Results: WBC 4.0 10^3/uL (4.0-10.5) 02/17/20 06:21 RBC 3.23 10^6/uL (3.72-5.28) L 02/17/20 06:21 Hgb 9.8 g/dL (12.0-15.5) L 02/17/20 06:21 Hct 28.7 % (36.0-47.0) L 02/17/20 06:21 MCV 89 fl (80-97) 02/17/20 06:21 MCH 30.5 pg (27.0-33.4) 02/17/20 06:21 MCHC 34.2 g/dL (32.0-36.0) 02/17/20 06:21 RDW 13.0 % (11.5-14.0) 02/17/20 06:21 Plt Count 88 10^3/uL (150-450) L 02/17/20 06:21 Lymph % (Auto) 37.4 % (13-45) 02/17/20 06:21 [place]ois % (Auto) 8.7 % (3-13) 02/17/20 06:21 Eos % (Auto) 3.7 % (0-6) 02/17/20 06:21 Baso % (Auto) 0.2 % (0-2) 02/17/20 06:21 Absolute Neuts (auto) 2.0 10^3/uL (1.7-8.2) 02/17/20 06:21 Absolute Lymphs (auto) 1.5 10^3/uL (0.5-4.7) 02/17/20 06:21 Absolute Monos (auto) 0.3 10^3/uL (0.1-1.4) 02/17/20 06:21 Absolute Eos (auto) 0.1 10^3/uL (0.0-0.6) 02/17/20 06:21 Absolute Basos (auto) 0.0 10^3/uL (0.0-0.2) 02/17/20 06:21 Seg Neutrophils % 50.0 % (42-78) 02/17/20 06:21 Sodium 139.5 mmol/L (137-145) 02/17/20 06:21 Potassium 3.5 mmol/L (3.6-5.0) L 02/17/20 06:21 Chloride 112 mmol/L (98-107) H 02/17/20 06:21 Carbon Dioxide 23 mmol/L (22-30) 02/17/20 06:21 Anion Gap 5 (5-19) 02/17/20 06:21 BUN 9 mg/dL (7-20) 02/17/20 06:21 Creatinine 0.73 mg/dL (0.52-1.25) 02/17/20 06:21 Est GFR ( Amer) > 60 (>60) 02/17/20 06:21 Est GFR (MDRD) Non-Af > 60 (>60) 02/17/20 06:21 Glucose 81 mg/dL (75-110) 02/17/20 06:21 Calcium 8.0 mg/dL (8.4-10.2) L 02/17/20 06:21 Total Bilirubin 0.8 mg/dL (0.2-1.3) 02/17/20 06:21 Direct Bilirubin 0.0 mg/dL (0.0-0.4) 02/17/20 06:21 Neonat Total Bilirubin Not Reportable 02/17/20 06:21 Neonat Direct Bilirubin Not Reportable 02/17/20 06:21 Neonat Indirect Bili Not Reportable 02/17/20 06:21 AST 22 U/L (14-36) 02/17/20 06:21 ALT 22 U/L (<35) 02/17/20 06:21 Alkaline Phosphatase 35 U/L (38-126) L 02/17/20 06:21 Creatine Kinase 222 U/L (30-135) H 02/14/20 01:31 CK-MB (CK-2) 5.50 ng/mL (<4.55) H 02/14/20 01:31 Troponin I < 0.012 ng/mL 02/14/20 04:35 Total Protein 4.7 g/dL (6.3-8.2) L 02/17/20 06:21 Albumin 2.7 g/dL (3.5-5.0) L 02/17/20 06:21 Lipase 145.3 U/L (23-300) 02/14/20 01:31 COVID-19 Source Cancelled 02/17/20 05:45 COVID-19 (TIMBO) Cancelled 02/17/20 05:45 Influenza A (RT-PCR) NEGATIVE (NEGATIVE) 02/17/20 05:45 Influenza B (RT-PCR) NEGATIVE (NEGATIVE) 02/17/20 05:45 RSV (RT-PCR) NEGATIVE (NEGATIVE) 02/17/20 05:45 SARS-CoV-2 Rap RNA(RT-PCR) POSITIVE (NEGATIVE) H 02/17/20 05:45 02/14/20 02/14/20 01:31 04:35 CK-MB (CK-2) 5.50 H Troponin I < 0.012 < 0.012 Impressions: Chest X-Ray 02/14/20 03:13 IMPRESSION: Clear lungs. Abdomen Ultrasound 02/14/20 03:27 IMPRESSION: Cholelithiasis with mild gallbladder wall thickening. Hepatobiliary Scan Nuclear Medicine 02/16/20 12:00 IMPRESSION: Positive HIDA.
== END 2020-02-17 12:00 | disposition home or self-care (01) ==
LOC: ER 00:41 → EH 05:56 → INTOOBSV 05:56 → 4W 07:44 → 3W 09:36
DX: K80.00 Calculus of gallbladder with acute cholecystitis without obstruction (principal); U07.1 COVID-19; R10.11 Right upper quadrant pain; R10.13 Epigastric pain; Z79.899 Other long term (current) drug therapy; I10 Essential (primary) hypertension
CPT/HCPCS: 93005; 99285; 96374; 96375; 36415 ×3; 82553; 82550; 83690; 85025 ×3; 0241U ×8; 80076; 80048; 80053 ×2; 84484; 71045; 76705; 78226; 93010; G0378 ×5; A9537; J1885 ×2; J2270 ×4; J7050 ×4; J7030 ×3; J7120; S0028 ×4; J2543 ×4; Q9969; C9803 ×2

== ENCOUNTER → 2020-03-31 | Outpatient (CLI) | payer OTHER ==
[2020-03-31 13:13] LABS: ANION GAP 7 (5-19); BLOOD UREA NITROGEN 18 mg/dL (7-20); CARBON DIOXIDE 28 mmol/L (22-30); CHLORIDE 105 mmol/L (98-107); GLUCOSE 87 mg/dL (75-110)
== END ==
LOC: OD 10:44
PROVIDERS: ATTEND Internal Medicine Cardiovascular Disease
DX: E83.42 Hypomagnesemia (principal); I10 Essential (primary) hypertension; E87.5 Hyperkalemia; E88.81 Metabolic syndrome and other insulin resistance; Z79.899 Other long term (current) drug therapy
CPT/HCPCS: 36415; 80048; 83525; 83735

== ENCOUNTER 2020-04-03 09:50 | Day surgery (SDC) | payer OTHER ==
[2020-03-31 12:53] LABS: ABSOLUTE EOSINOPHILS # (AUTO) 0.3 10^3/uL (0.0-0.6); ABSOLUTE LYMPHOCYTES (AUTO) 3.1 10^3/uL (0.5-4.7); ABSOLUTE MONOCYTES (AUTO) 0.4 10^3/uL (0.1-1.4); ABSOLUTE NEUT (AUTO) 3.7 10^3/uL (1.7-8.2); BASOPHILS % (AUTO) 0.3 % (0-2); EOSINOPHILS % (AUTO) 4.1 % (0-6); HEMATOCRIT 37.3 % (36.0-47.0); HEMOGLOBIN 12.9 g/dL (12.0-15.5); LYMPHOCYTES % (AUTO) 41.1 % (13-45); MEAN CORPUSCULAR HEMOGLOBIN 30.4 pg (27.0-33.4); MEAN CORPUSCULAR HGB CONC 34.5 g/dL (32.0-36.0); MEAN CORPUSCULAR VOLUME 88 fl (80-97); MONOCYTES % (AUTO) 5.4 % (3-13); PLATELET COUNT 203 10^3/uL (150-450); RED BLOOD COUNT 4.24 10^6/uL (3.72-5.28); RED CELL DISTRIBUTION WIDTH 14.1 % (11.5-14.0); SEGMENTED NEUTROPHILS % (AUTO) 49.1 % (42-78); TOTAL CELLS COUNTED % (AUTO) 100 %; WHITE BLOOD COUNT 7.5 10^3/uL (4.0-10.5)
[~2020-04-03 09:50] MED LIST: CEFAZOLIN 2 GM/D5W RTU 2 GM/50 ML RTUPB IV ONE; CEFAZOLIN 2 GM/D5W RTU 2 GM/50 ML RTUPB IV PRN; CEFAZOLIN SODIUM 2 GM in DEXTROSE 5%-WATER 100 ML IV PRN; FENTANYL CITRATE INJ/PF 100 MCG/2 ML AMPUL ONE; LACTATED RINGERS 1000 ML IV PRN; METRONIDAZOLE 500 MG/NS RTU 500 MG/100 ML RTUPB IV ONE; METRONIDAZOLE 500 MG/NS RTU 500 MG/100 ML RTUPB IV PRN; MIDAZOLAM 2 MG/2 ML INJ ONE; PROPOFOL INJ 200 MG/20 ML VIAL IV ONE
[2020-04-03 10:43] LABS: ANION GAP 7 (5-19); BLOOD UREA NITROGEN 13 mg/dL (7-20); CALCIUM 9.9 mg/dL (8.4-10.2); CARBON DIOXIDE 23 mmol/L (22-30); CHLORIDE 110 mmol/L (98-107); GLUCOSE 98 mg/dL (75-110); POTASSIUM 4.4 mmol/L (3.6-5.0)
[2020-04-03] MEDS ORDERED: BUPIVACAINE INJ/PF LIPOSOME/PF 266 MG/20 ML SDV ONE (10:48)
[2020-04-03] MEDS ORDERED: ONDANSETRON HCL INJ/PF 4 MG/2 ML SDV IV PRN (11:02)
[2020-04-03] MEDS ORDERED: DIPHENHYDRAMINE HCL 50 MG/ML VIAL IV PRN (11:02)
[2020-04-03] MEDS ORDERED: MORPHINE SULFATE 10 MG/ML INJ IV PRN (11:02)
[2020-04-03] MEDS ORDERED: MEPERIDINE HCL/PF INJ 25 MG/1 ML DISP.SYRIN IV PRN (11:02)
[2020-04-03] MEDS ORDERED: FENTANYL CITRATE INJ/PF 100 MCG/2 ML AMPUL IV PRN ×3 (11:02)
[2020-04-03] MEDS ORDERED: ROCURONIUM BROMIDE INJ 50 MG/5 ML VIAL IV ONE (11:44)
[2020-04-03] MEDS ORDERED: KETOROLAC TROMETHAMINE 60 MG/2 ML SDV ONE (11:44)
[2020-04-03] MEDS ORDERED: ONDANSETRON HCL INJ/PF 4 MG/2 ML SDV ONE (11:44)
[2020-04-03] MEDS ORDERED: NEOSTIGMINE METHYLSULFATE 10 MG/10 ML VIAL ONE (11:44)
[2020-04-03] MEDS ORDERED: PHENYLEPHRINE HCL INJ/PF 10 MG/1 ML SDV ONE (11:44)
[2020-04-03] MEDS ORDERED: SUCCINYLCHOLINE CHLORIDE INJ 200 MG/10 ML VIAL ONE (11:44)
[2020-04-03] MEDS ORDERED: DEXAMETHASONE SOD PHOSPHATE INJ 4 MG/1 ML VIAL ONE (11:44)
[2020-04-03] MEDS ORDERED: GLYCOPYRROLATE 1 MG/5 ML VIAL ONE (11:44)
--- NOTE | 2020-04-03 11:59 | Operative Report ---
Nonrecallable Operative Report DATE OF SURGERY: 04/03/20 PREOPERATIVE DIAGNOSIS: Cholecystitis POSTOPERATIVE DIAGNOSIS: Same OPERATION: Laparoscopic cholecystectomy SURGEON: BUZZ RITTER STONE DRESSER: DARSHANA MCNAIR ANESTHESIA: GA TISSUE REMOVED OR ALTERED: Gallbladder COMPLICATIONS: None ESTIMATED BLOOD LOSS: 25 cc INTRAOPERATIVE FINDINGS: See note PROCEDURE: After obtaining informed consent, the patient was taken to the operating room. General Anesthesia was induced; the arms were extended, and the abdomen was exposed, and prepped and draped in a sterile fashion. Instrumentation was set up for laparoscopic cholecystectomy. Surgical plan and surgical timeout were conducted. A vertical incision was made above the umbilicus, and a verres needle was inserted uneventfully into the peritoneal cavity. Pneumoperitoneum was established. The verres needle was removed and a 10 mm trocar was inserted and a 10 mm laparoscope was inserted. Visualization of the peritoneal cavity confirmed safe uneventful entry. Under direct visualization 3 additional 5 mm ports were established, one in the subxiphoid position and second in the subcostal position. Visualization of the hepatobiliary anatomy revealed no anatomic variations. A grasper was placed on the fundus of the gallbladder and the gallbladder is elevated over the right surface of the liver; a second grasper was used to grasp the infundibulum of the gallbladder. The neck of the gallblad le and junction with the cystic duct was dissected out. The Cystic artery was in its usual location medial and cephalad to the cystic duct. The cystic artery was surrounded with a right angle clamp, clipped twice proximally and divided with laparoscopic scissors. We now opened the triangle of Calot by dividing the peritoneal reflection on both the medial and lateral sides of the cystic duct infundibular junction. The critical view was obtained. We now milked the cystic duct of any possible stones, clipped the cystic duct approximately 2 times once distally and divided with scissors. The gallbladder was now removed from the undersurface of the liver using hook cautery dissection. Graspers were repositioned and the gallbladder was removed uneventfully from the abdominal cavity through the super umbilical port site incision. The specimen was examined, then passed off to pathology for permanent analysis. We returned to the peritoneal cavity check for bleeding, and evidence of bile leak, and there was none. We Confirmed satisfactory placement of clips on cystic duct and cystic artery were secured . At this point we felt the operation was complete. The subcutaneous tissue was then anesthetized with quarter percent Marcaine Sponge and needle counts are correct. All ports removed under direct visualization pneumoperitoneum evacuated, and 5 mm port wounds closed with 3-0 Vicryl suture, benzoin and Steri-Strips. KENY Marcum was present for the entire procedure for help with wound retraction wound closure The patient was extubated, and taken to the recovery room in stable condition.
--- NOTE | 2020-04-03 12:01 | Discharge Summary ---
Discharge Summary (SDC) - Discharge Final Diagnosis: Cholecystitis Date of Surgery: 04/03/20 Discharge Date: 04/03/20 Condition: Good Prescriptions: Hydrocodone/Acetaminophen [Cisco 10-325 mg Tablet] 1 tab PO Q6HP PRN #10 tablet PRN Reason: Referrals: CROW LAZARO MD [Primary Care Provider] - Discharge Diet: As Tolerated Discharge Activity: Activity As Tolerated, No Lifting Over 10 Pounds Report the Following to Your Physician Immediately: Yellow Skin, Unusual Bleeding - Patient is to follow-up with me in surgery clinic in 7 to 10 days
[2020-04-03] MEDS ORDERED: HYDROCODONE/ACETAMINOPHEN 10-325 MG TABLET PO PRN (12:02)
[2020-04-03] MEDS ORDERED: MORPHINE SULFATE 10 MG/ML INJ ONE (12:21)
[2020-04-03] MEDS ORDERED: HYDROCODONE/ACETAMINOPHEN 10-325 MG TABLET ONE (12:56)
[2020-04-03 14:27] VITALS: BP 93/55
== END 2020-04-03 13:50 | disposition home or self-care (01) ==
LOC: OROUT 09:50
PROVIDERS: ATTEND Surgery
DX: K80.10 Calculus of gallbladder with chronic cholecystitis without obstruction (principal); I10 Essential (primary) hypertension; R73.03 Prediabetes; Z01.812 Encounter for preprocedural laboratory examination; Z20.822 Contact with and (suspected) exposure to COVID-19; Z86.16 Personal history of COVID-19; Z79.899 Other long term (current) drug therapy; Z79.84 Long term (current) use of oral hypoglycemic drugs; Z90.49 Acquired absence of other specified parts of digestive tract
CPT/HCPCS: 36415 ×2; 85025; 87635; 80048; 88304 ×2; 47562; J2250; J3010; J3490; J2270; J2704; J0690; C9290; C9803; J0330; J1100; J1885; J2370; J2405; J2710; J7060